=== PATIENT | male | born 1980 ===

== ENCOUNTER → 2018-06-24 17:34 | Outpatient (CLI) | payer OTHER | END | disposition home or self-care (01) | LOC: RAD 17:34 | DX: M99.01 Segmental and somatic dysfunction of cervical region (principal); M99.02 Segmental and somatic dysfunction of thoracic region; M99.04 Segmental and somatic dysfunction of sacral region; M99.03 Segmental and somatic dysfunction of lumbar region ==

== ENCOUNTER 2021-04-03 10:57 | Outpatient (CLI) | payer OTHER | END 2021-04-03 11:08 | disposition home or self-care (01) | LOC: RAD 10:57 | PROVIDERS: ATTEND Orthopaedic Surgery | DX: S62.646A Nondisplaced fracture of proximal phalanx of right little finger, initial encounter for closed fracture (principal) ==